=== PATIENT | male | born 1960 | race Caucasian/White ===

== ENCOUNTER 2021-07-03 21:10 | Emergency (ER) | payer BC, OTHER | END 2021-07-03 22:02 | disposition left against medical advice (07) | LOC: MW.ED 21:10 | DX: U07.1 COVID-19 (principal); Z53.21 Procedure and treatment not carried out due to patient leaving prior to being seen by health care provider ==

== ENCOUNTER 2021-07-05 09:35 | Emergency (ER) | payer BC ==
--- NOTE | 2021-07-05 09:45 | EDM.PDOC ---
ED HPI GENERAL MEDICAL PROBLEM - General Chief Complaint: Respiratory Problem Stated Complaint: COVID POS ON 06/30/21 Time Seen by Provider: 07/05/21 09:44 Source of Information: Reports: Patient History Limitations: Reports: No Limitations - History of Present Illness INITIAL COMMENTS - FREE TEXT/NARRATIVE: 60-year-old male no past medical history no daily medications presents for worsening symptoms in setting of known COVID-19 infection. Patient has been feeling sick since around June 27. He tested positive for COVID-19 on June 30. He notes that over the last few days his shortness of breath has worsened. He notes a nonproductive cough and chest pain when coughing. He was struggling with some nausea and vomiting but notes that he has not had issues with nausea or vomiting for the last several days. He did check into the emergency department 2 nights ago but left prior to being seen by a provider. - Related Data Allergies Allergy/AdvReac Type Severity Reaction Status Date / Time No Known Allergies Allergy Verified 07/05/21 09:49 Home Meds: Home Meds dexAMETHasone [Decadron] 6 mg PO DAILY #9 tablet 07/05/21 [Rx] ED ROS GENERAL - Review of Systems Review Of Systems: Comprehensive ROS is negative, except as noted in HPI. ED EXAM, GENERAL - Physical Exam Exam: See Below Exam Limited By: No Limitations General Appearance: Alert, WD/WN, No Apparent Distress Ears: Hearing Grossly Normal Throat/Mouth: Normal Voice, No Airway Compromise Head: Atraumatic, Normocephalic Neck: Normal Inspection Respiratory/Chest: No Respiratory Distress, Lungs Clear, Normal Breath Sounds, No Accessory Muscle Use Cardiovascular: Normal Peripheral Pulses, Regular Rate, Rhythm Extremities: Normal Inspection Neurological: Alert Psychiatric: Normal Affect, Normal Mood Skin Exam: Warm, Dry, Intact, Normal Color #1 Interpretation EKG Date: 07/05/21 Time: 10:23 Rhythm: NSR Rate (Beats/Min): 92 [place]: Normal P-Wave: Present QRS: Normal ST-T: Normal QT: Normal [place]/PQ Interval: 155 EKG Interpretation Comments: normal EKG Course - Vital Signs Last Recorded V/S: Last Vital Signs Temp 98.7 F 07/05/21 09:49 Pulse 86 07/05/21 12:24 Resp 18 07/05/21 12:24 BP 108/71 07/05/21 12:24 Pulse Ox 95 07/05/21 12:24 - Orders/Labs/Meds Orders: Active Orders 24 hr Category Date Time Status Pulse Oximetry [RC] ASDIRECTED Care 07/05/21 09:55 Active Saline Lock Insert [OM.PC] Stat Oth 07/05/21 09:55 Ordered Labs: Laboratory Tests 07/05/21 07/05/21 07/05/21 Range/Units 10:30 10:30 10:30 WBC 5.04 (4.0-11.0) K/uL RBC 4.91 (4.50-5.90) M/uL Hgb 14.3 (13.0-17.0) g/dL Hct 43.4 (38.0-50.0) % MCV 88.4 (80.0-98.0) fL MCH 29.1 (27.0-32.0) pg MCHC 32.9 (31.0-37.0) g/dL RDW Std Deviation 43.5 (28.0-62.0) fl RDW Coeff of Tamela 13 (11.0-15.0) % Plt Count 206 (150-400) K/uL MPV 9.60 (7.40-12.00) fL Neut % (Auto) 74.0 (48.0-80.0) % Lymph % (Auto) 18.1 (16.0-40.0) % Ralls % (Auto) 7.7 (0.0-15.0) % Eos % (Auto) 0.0 (0.0-7.0) % Baso % (Auto) 0.2 (0.0-1.5) % Neut # (Auto) 3.7 (1.4-5.7) K/uL Lymph # (Auto) 0.9 (0.6-2.4) K/uL Ralls # (Auto) 0.4 (0.0-0.8) K/uL Eos # (Auto) 0.0 (0.0-0.7) K/uL Baso # (Auto) 0.0 (0.0-0.1) K/uL Nucleated RBC % 0.0 /100WBC Nucleated RBCs # 0 K/uL D-Dimer, Quantitative (0.0-0.50) mg/L FEU Sodium 137 (136-148) mmol/L Potassium 4.0 (3.5-5.1) mmol/L Chloride 100 (98-107) mmol/L Carbon Dioxide 30.2 (21.0-32.0) mmol/L BUN 21 H (7.0-18.0) mg/dL Creatinine 1.3 (0.8-1.3) mg/dL Est Cr Clr Drug Dosing 65.50 mL/min Estimated GFR (MDRD) 56.1 ml/min Glucose 111 H (74-106) mg/dL Lactic Acid 0.9 (0.4-2.0) mmol/L Calcium 8.1 L (8.5-10.1) mg/dL Total Bilirubin 0.4 (0.2-1.0) mg/dL AST 50 H (15-37) IU/L ALT 51 (14-63) IU/L Alkaline Phosphatase 62 (46-116) U/L Troponin I < 0.050 (0.000-0.056) ng/mL C-Reactive Protein 4.20 H (0.00-0.90) mg/dL Total Protein 7.2 (6.4-8.2) g/dL Albumin 3.4 (3.4-5.0) g/dL Globulin 3.8 (2.6-4.0) g/dL Albumin/Globulin Ratio 0.9 (0.9-1.6) 07/05/21 Range/Units 10:57 WBC (4.0-11.0) K/uL RBC (4.50-5.90) M/uL Hgb (13.0-17.0) g/dL Hct (38.0-50.0) % MCV (80.0-98.0) fL MCH (27.0-32.0) pg MCHC (31.0-37.0) g/dL RDW Std Deviation (28.0-62.0) fl RDW Coeff of Tamela (11.0-15.0) % Plt Count (150-400) K/uL MPV (7.40-12.00) fL Neut % (Auto) (48.0-80.0) % Lymph % (Auto) (16.0-40.0) % Ralls % (Auto) (0.0-15.0) % Eos % (Auto) (0.0-7.0) % Baso % (Auto) (0.0-1.5) % Neut # (Auto) (1.4-5.7) K/uL Lymph # (Auto) (0.6-2.4) K/uL Ralls # (Auto) (0.0-0.8) K/uL Eos # (Auto) (0.0-0.7) K/uL Baso # (Auto) (0.0-0.1) K/uL Nucleated RBC % /100WBC Nucleated RBCs # K/uL D-Dimer, Quantitative 0.61 H (0.0-0.50) mg/L FEU Sodium (136-148) mmol/L Potassium (3.5-5.1) mmol/L Chloride (98-107) mmol/L Carbon Dioxide (21.0-32.0) mmol/L BUN (7.0-18.0) mg/dL Creatinine (0.8-1.3) mg/dL Est Cr Clr Drug Dosing mL/min Estimated GFR (MDRD) ml/min Glucose (74-106) mg/dL Lactic Acid (0.4-2.0) mmol/L Calcium (8.5-10.1) mg/dL Total Bilirubin (0.2-1.0) mg/dL AST (15-37) IU/L ALT (14-63) IU/L Alkaline Phosphatase (46-116) U/L Troponin I (0.000-0.056) ng/mL C-Reactive Protein (0.00-0.90) mg/dL Total Protein (6.4-8.2) g/dL Albumin (3.4-5.0) g/dL Globulin (2.6-4.0) g/dL Albumin/Globulin Ratio (0.9-1.6) Meds: Medications Discontinued Medications Generic Name Dose Route Start Last Admin Trade Name Freq PRN Reason Stop Dose Admin Dexamethasone 6 mg 07/05/21 09:54 07/05/21 10:32 Dexamethasone 10 Mg/Ml Sdv IVPUSH 07/05/21 09:55 6 mg ONETIME ONE Administration Iopamidol 100 ml 07/05/21 12:28 07/05/21 12:29 Iopamidol 755 Mg/Ml 500 Ml Multipack Bottle IVPUSH 07/05/21 12:29 100 ml ONETIME STA Administration - Re-Assessments/Exams Free Text/Narrative Re-Assessment/Exam: 07/05/21 09:59 Will get labs and CXR. Will give decadron. Patient did present hypoxic to high 80s improving with 2-L NC oxygen. 07/05/21 11:28 D-dimer is borderline age-adjusted. Will get CTA imaging to rule pulmonary embolism and to further characterize degree of Covid. 07/05/21 13:24 CT scan does show evidence of Covid pneumonia without pulmonary embolism. Patient is well-appearing. Will discharge with home O2. Did offer hospitalization but patient is okay with going home on home O2. I believe this is reasonable. Departure - Departure Time of Disposition: 13:24 Disposition: Home, Self-Care 01 Condition: Good Clinical Impression: COVID - Discharge Information Prescriptions: dexAMETHasone [Decadron] 6 mg PO DAILY #9 tablet Instructions: COVID-19: What to Do if You Are Sick - [facility] (10/29/2020) Referrals: PCP,None [Primary Care Provider] - Forms: ED Department Discharge Additional Instructions: If your oxygenation is persistently below 88% despite using your oxygen you should come back to the hospital. If you are feeling worsening shortness of breath or chest tightness you should come back to the hospital immediately. The following information is given to patients seen in the emergency department who are being discharged to home. This information is to outline your options for follow-up care. We provide all patients seen in our emergency department with a follow-up referral. The need for follow-up, as well as the timing and circumstances, are variable depending upon the specifics of your emergency department visit. If you don't have a primary care physician on staff, we will provide you with a referral. We always advise you to contact your personal physician following an emergency department visit to inform them of the circumstance of the visit and for follow-up with them and/or the need for any referrals to a consulting specialist. The emergency department will also refer you to a specialist when appropriate. This referral assures that you have the opportunity for follow-up care with a specialist. All of these measure are taken in an effort to provide you with optimal care, which includes your follow-up. Under all circumstances we always encourage you to contact your private physician who remains a resource for coordinating your care. When calling for follow-up care, please make the office aware that this follow-up is from your recent emergency room visit. If for any reason you are refused follow-up, please contact the [facility] Emergency Department at and asked to speak to the emergency department charge nurse. Please follow up with your primary care physician. If you do not have a primary care physician, see below: [facility] [address] [place] [id number] [facility] [address] [place] [address] [facility] [address] [address] Sepsis Event Note (ED) - Focused Exam Vital Signs: Vital Signs Temp Pulse Resp BP Pulse Ox 07/05/21 12:24 86 18 108/71 95 07/05/21 11:15 95 16 114/75 95 07/05/21 09:54 94 L 07/05/21 09:49 98.7 F 91 20 114/81 87 L - My Orders Last 24 Hours: My Active Orders 07/05/21 09:55 Pulse Oximetry [RC] ASDIRECTED Saline Lock Insert [OM.PC] Stat - Assessment/Plan Last 24 Hours: My Active Orders 07/05/21 09:55 Pulse Oximetry [RC] ASDIRECTED Saline Lock Insert [OM.PC] Stat
[2021-07-05] MEDS ORDERED: Dexamethasone 10 MG/ML SDV IVPUSH ONE (09:54)
--- NOTE | 2021-07-05 10:35 | CR ---
HISTORY: Shortness of breath. COVID-19. TECHNIQUE: One view of the chest. COMPARISON: No prior. FINDINGS: There is no acute lung infiltrate or pulmonary edema. No pneumothorax or pleural effusion. Cardiac size and pulmonary vasculature are within normal limits. IMPRESSION: No focal lung infiltrate. Dictated by Chandler Barraza MD @ 07/05/2021 10:33:44 AM (Electronically Signed)
[2021-07-05 11:06] LABS: BLOOD UREA NITROGEN,BUN 21 mg/dL (7.0-18.0); CARBON DIOXIDE,CO2 30.2 mmol/L (21.0-32.0); CHLORIDE,CL 100 mmol/L (98-107); GLUCOSE RANDOM 111 mg/dL (74-106); SODIUM,NA 137 mmol/L (136-148)
[2021-07-05] MEDS ORDERED: Iopamidol 755 MG/ML 500 ML Multipack Bottle IVPUSH STA (12:28)
--- NOTE | 2021-07-05 13:09 | CT ---
INDICATION: COVID-19 positive; elevated D-dimer; rule out PE. COMPARISON: Chest radiograph July 05, 2021. TECHNIQUE: CT chest with intravenous contrast; coronal and sagittal reformats. FINDINGS: No CT evidence of pulmonary thromboembolism. No evidence of aortic aneurysm or dissection. Normal size cardiac silhouette without any evidence of pericardial effusion. No abnormal mediastinal or hilar lymphadenopathy. Patchy areas of alveolar consolidation diffuse both lungs; diagnostic of COVID-19 infection. No evidence of pleural effusion. Limited CT through the upper abdomen is unremarkable. Mild diffuse fatty infiltration of the liver IMPRESSION: 1. Patchy areas of alveolar consolidation diffusely involving both lungs diagnostic of COVID-[address] evidence of pulmonary thromboembolism. 3. Mild diffuse fatty infiltration of the liver. Please note that all CT scans at this facility use dose modulation, iterative reconstruction, and/or weight-based dosing when appropriate to reduce radiation dose to as low as reasonably achievable. Dictated by Sona Brower MD @ 07/05/2021 1:08:11 PM (Electronically Signed)
== END 2021-07-05 14:51 | disposition home or self-care (01) ==
LOC: MW.ED 09:35
DX: U07.1 COVID-19 (principal)
CPT/HCPCS: 71045; 71275; 80053; 83605; 84484; 85025; 85379; 86140; 93005; 96374; 99285; J1100; Q9967

== ENCOUNTER 2021-07-10 10:40 | Emergency (ER) | payer BC ==
--- NOTE | 2021-07-10 11:38 | EDM.PDOC ---
ED HPI GENERAL MEDICAL PROBLEM - General Chief Complaint: Respiratory Problem Stated Complaint: COUGH, COVID RELATED SYMPTOMS Time Seen by Provider: 07/10/21 10:50 - History of Present Illness INITIAL COMMENTS - FREE TEXT/NARRATIVE: CHIEF COMPLAINT(S): "Trying to follow-up to see what I need to do." HISTORY OF PRESENT ILLNESS: This is a 60-year-old man with a recent diagnosis of COVID-19 pneumonia who was discharged on home oxygen with minimal home oxygen requirement who comes to the emergency department with a chief complaint of "trying to follow-up to see what I need to do." The patient states that his primary care physician called him last night and he told him to come into the ER to talk to us about options. He states that he initially followed up with primary care physician to evaluate possible monoclonal antibody treatment however he states that it is too late. Patient states that his symptoms have remained stable and have not worsened. He denies any chest pain, shortness of breath, abdominal pain, nausea or vomiting. He is tolerating food and fluid without any issues. He states that on 2 L at home his oxygen has stayed between 90 to 94%. He denies any other symptoms. REVIEW OF SYSTEMS: Constitutional: Denies fever, chills. Eyes: Denies eye pain Ears, Nose, Mouth, & Throat: Denies earache Cardiovascular: Denies chest pain Respiratory: Positive for cough. Denies shortness of breath Gastrointestinal: Denies Nausea, vomiting, diarrhea, hematochezia. Genitourinary: Denies hematuria Skin:Denies a rash MSK: Denies joint pain Neurological: Denies blurred vision Psychiatric: Denies depression PAST MEDICAL HISTORY: As per history of present illness and as reviewed below otherwise noncontributory. SURGICAL HISTORY: As per history of present illness and as reviewed below otherwise noncontributory. SOCIAL HISTORY: As per history of present illness and as reviewed below otherwise noncontributory. FAMILY HISTORY: As per history of present illness and as reviewed below otherwise noncontributory. EXAMINATION OF ORGAN SYSTEMS/BODY AREAS: Constitutional: Blood pressure is 129/93, heart rate 79, respiratory rate 18 with an oxygen saturation of 90 to 94% on 2 L nasal cannula. Temperature 36.0 General: Overall well-appearing man who is in no acute distress Psychiatric: Appropriate mood and affect. Eyes: No scleral icterus or conjunctival erythema ENMT: Moist mucous membranes. No pharyngeal erythema Cardiovascular: Regular, rate, and rhythm. No gallops, murmurs, or rubs. Bilateral upper extremity pulses symmetric and intact. No peripheral edema. No JVD. Respiratory: Lungs clear to auscultation bilaterally. No wheezes, rales, or rhonchi. Gastrointestinal: Soft, non-tender, non-distended. Normoactive bowel sounds Genitourinary: No suprapubic tenderness Musculoskeletal: Normal range of motion. Skin: No lesions or abrasions. Neurological: Alert, GCS 15 MEDICAL DECISION MAKING AND COURSE IN THE ED WITH INTERPRETATION/REVIEW OF DIAGNOSTIC STUDIES: This is a 60-year-old man with a recent diagnosis of COVID- 19 pneumonia who is currently on 2 to 4 L home oxygen who comes to the emergency department with concerns and wants to discuss further options for his treatment. At this time his symptoms have remained stable and his oxygen saturation is appropriate. The patient is currently beyond the treatment window for monoclonal antibodies and given that he is requiring oxygen he is not a candidate for this treatment. Given that he has not had any increased oxygen requirements I do not believe any further work-up or treatment is indicated. If his oxygen worsens he is to return to the emergency department for reevaluation and possible admission for remdesivir. I discussed symptomatic treatment at home, continue with dexamethasone as prescribed, and follow-up with his primary care physician for further monitoring given that his been 14 days I do believe he is going to require oxygen for some time and hopefully will come off of it and do time as his body heals. He did express understanding was amenable discharge and had no further questions DISPOSITION: The patient was discharged home in stable condition. The patient will follow up with primary care physician in 3 to 5 days CONDITION: Fair PROCEDURES: None FINAL IMPRESSION(S)/DIAGNOSES: 1. Acute COVID-19 pneumonia Rickey Charles M.D. - Related Data Allergies Allergy/AdvReac Type Severity Reaction Status Date / Time No Known Allergies Allergy Verified 07/10/21 10:58 Home Meds: Home Meds dexAMETHasone [Decadron] 6 mg PO DAILY #9 tablet 07/05/21 [Rx] Past Medical History - Past Health History Medical/Surgical History: Denies Medical/Surgical History HEENT History: Reports: None Cardiovascular History: Reports: None Respiratory History: Reports: None Gastrointestinal History: Reports: None Genitourinary History: Reports: None Musculoskeletal History: Reports: None Neurological History: Reports: None Psychiatric History: Reports: None Endocrine/Metabolic History: Reports: None Hematologic History: Reports: None Immunologic History: Reports: None Oncologic (Cancer) History: Reports: None Dermatologic History: Reports: None - Infectious Disease History Infectious Disease History: Reports: Novel Coronavirus - Past Surgical History Head Surgeries/Procedures: Reports: None HEENT Surgical History: Reports: None Cardiovascular Surgical History: Reports: None Respiratory Surgical History: Reports: None GI Surgical History: Reports: None Male Surgical History: Reports: None Endocrine Surgical History: Reports: None Neurological Surgical History: Reports: None Musculoskeletal Surgical History: Reports: None Oncologic Surgical History: Reports: None Dermatological Surgical History: Reports: None Social & Family History - Family History Family Medical History: No Pertinent Family History - Tobacco Use Tobacco Use Status *Q: Never Tobacco User Second Hand Smoke Exposure: No - Caffeine Use Caffeine Use: Reports: None - Recreational Drug Use Recreational Drug Use: No ED ROS GENERAL - Review of Systems Review Of Systems: See Below ED EXAM, GENERAL - Physical Exam Exam: See Below Course - Vital Signs Last Recorded V/S: Last Vital Signs Temp 36.0 C L 07/10/21 10:56 Pulse 76 07/10/21 11:52 Resp 20 07/10/21 11:52 BP 126/78 07/10/21 11:52 Pulse Ox 94 L 07/10/21 11:52 Departure - Departure Time of Disposition: 11:37 Disposition: Home, Self-Care 01 Condition: Fair Clinical Impression: COVID - Discharge Information *PRESCRIPTION DRUG MONITORING PROGRAM REVIEWED*: No *COPY OF PRESCRIPTION DRUG MONITORING REPORT IN PATIENT DAVIDA: No Instructions: Symptoms of Coronavirus - CDC (12/21/2020) Referrals: Skyler Cavazos MD [Primary Care Provider] - Forms: ED Department Discharge Additional Instructions: You were evaluated today on an emergent basis. As discussed it is important that you continue to utilize the oxygen at home. As discussed if you have increased oxygen requirement, coughing up greenish/yellow phlegm, have increased shortness of breath, you pass out, or have chest pain I would like you to return to the emergency department. Otherwise it is important that you maintain follow-up with your primary care physician for further monitoring given that you are on oxygen. As discussed given that it has been 14 days since symptom onset and given that you are requiring oxygen you are not a candidate for either remdesivir or monoclonal antibodies. Please continue to take your steroids as prescribed. [facility] [address] [place] [address] [facility] [address] [place] [id number] The patient is informed of any results of their evaluation and diagnostic workup and all questions are answered. They are given discharge instructions and return precautions. The patient is stable for discharge. The patient states they understand and agree with the plan and that they will return if their symptoms get worse or if they have any new concerns. The following information is given to patients seen in the emergency department who are being discharged to home. This information is to outline your options for follow-up care. We provide all patients seen in our emergency department with a follow-up referral. The need for follow-up, as well as the timing and circumstances, are variable depending upon the specifics of your emergency department visit. If you don't have a primary care physician on staff, we will provide you with a referral. We always advise you to contact your personal physician following an emergency department visit to inform them of the circumstance of the visit and for follow-up with them and/or the need for any referrals to a consulting specialist. The emergency department will also refer you to a specialist when appropriate. This referral assures that you have the opportunity for follow-up care with a specialist. All of these measure are taken in an effort to provide you with optimal care, which includes your follow-up. Under all circumstances we always encourage you to contact your private physician who remains a resource for coordinating your care. When calling for follow-up care, please make the office aware that this follow-up is from your recent emergency room visit. If for any reason you are refused follow-up, please contact the [facility] Emergency Department at and asked to speak to the emergency department charge nurse. Sepsis Event Note (ED) - Evaluation Sepsis Screening Result: No Definite Risk
== END 2021-07-10 11:52 | disposition home or self-care (01) ==
LOC: MW.ED 10:40
DX: U07.1 COVID-19 (principal); J12.82 Pneumonia due to coronavirus disease 2019
CPT/HCPCS: 99283